=== PATIENT | female | born 1965 | race Caucasian/White ===

== ENCOUNTER 2022-07-01 15:37 | Emergency (ER) | payer MEDICAID, OTHER ==
[~2022-07-01] VITALS: Ht 175.3 cm; Wt 88.0 kg
[2022-07-01] MEDS ORDERED: HYDROcodone-ACET 10/325MG TAB PO ONE (16:15)
[2022-07-01] MEDS ORDERED: IBUP800T26 PO (17:19)
[2022-07-01] MEDS ORDERED: CEPH-510 PO ×2 (17:19→17:22)
[2022-07-01] MEDS ORDERED: HYDR-4902 PO (17:20)
[2022-07-01 17:40] VITALS: BP 137/80
== END 2022-07-01 17:42 | disposition home or self-care (01) ==
LOC: ER 15:37
DX: L03.116 Cellulitis of left lower limb (principal)
CPT/HCPCS: 73700

== ENCOUNTER 2022-09-14 06:12 | Emergency (ER) | payer MEDICAID ==
[~2022-09-14] VITALS: Ht 175.3 cm; Wt 87.0 kg
[~2022-09-14 06:12] MED LIST: CEPH-510 PO; HYDR-4902 PO; IBUP-1455 PO
[2022-09-14] MEDS ORDERED: CEPH500C PO (07:47)
[2022-09-14] MEDS ORDERED: BACDST PO (07:47)
[2022-09-14 08:13] VITALS: BP 142/92; PULSE 92; RESP 18; TEMP 98; O2SAT 98
== END 2022-09-14 08:15 | disposition home or self-care (01) ==
LOC: ER 06:12
DX: S91.002D Unspecified open wound, left ankle, subsequent encounter (principal); Z76.0 Encounter for issue of repeat prescription; X58.XXXD Exposure to other specified factors, subsequent encounter